=== PATIENT | female | born 1990 | race American Indian/Alaskan Native ===

== ENCOUNTER 2016-04-11 20:17 | Emergency (ER) | payer MEDICAID, OTHER ==
[2016-04-12 01:02] VITALS: BP 126/93
--- NOTE | 2016-04-12 03:31 | Emergency Department Report ---
Upper Extremity - [facility] Chief Complaint: Extremity Injury, Upper Stated Complaint: NO FEELING IN RT ARM Time Seen by Provider: 04/12/16 03:00 Upper Extremity: Right Forearm, Right Wrist Occurred When: Today Mechanism: Unsure Severity: mild Symptoms: No Pain with Movement, No Deformity, No Limited Range of Movement, No Numbness, No Weakness, No Swelling, No Bruising/Ecchymosis, No Laceration or Abrasion Other History: 25 bowman/o female state during work that her right wrist and forearm felt as though it "went to sleep"pt denies any pain at present .pt state her job require constant wrist flexion for 10-12 hours a day ED Review of Systems ROS: Stated complaint: NO FEELING IN RT ARM Other details as noted in HPI Constitutional: denies: chills, fever Eyes: denies: eye pain, eye discharge, vision change ENT: denies: ear pain, throat pain Respiratory: denies: cough, shortness of breath, wheezing Cardiovascular: denies: chest pain, palpitations Endocrine: no symptoms reported Gastrointestinal: denies: abdominal pain, nausea, diarrhea Genitourinary: denies: urgency, dysuria, discharge Musculoskeletal: arthralgia. denies: back pain, joint swelling Skin: denies: rash, lesions Neurological: denies: headache, weakness, paresthesias Psychiatric: denies: anxiety, depression Hematological/Lymphatic: denies: easy bleeding, easy bruising ED Past Medical Hx - Past Medical History Previous Medical History?: Yes Hx Hypertension: No Hx Congestive Heart Failure: No Hx Diabetes: No Hx Deep Vein Thrombosis: No Hx Renal Disease: No Hx Sickle Cell Disease: No Hx Seizures: No Hx Asthma: No Hx COPD: No Hx HIV: No Additional medical history: obesity - Surgical History Past Surgical History?: Yes - Social History Smoking Status: Former Smoker Substance Use Type: Alcohol - Medications Home Medications: Home Medications Medication Instructions Recorded Confirmed Last Taken Type Iron 18 mg PO BID 11/01/13 11/01/13 10/31/13 22:00 History Ferrous Sulfate [Feosol 325 MG tab] 325 mg PO BID #60 tablet 11/03/13 Unknown Rx HYDROcodone/APAP 5-325 [[place] 2 each PO Q4H PRN #30 tablet 11/03/13 Unknown Rx 5-325 mg TAB] Ibuprofen [Motrin 600 MG tab] 600 mg PO Q6HR PRN #30 tablet 11/03/13 Unknown Rx Vit#96/Ferrous Fum/FA 1 tab PO DAILY #30 tablet 11/03/13 Unknown Rx [ Tablet] Cephalexin [Keflex] 500 mg PO Q6H #40 capsule 04/05/14 Unknown Rx HYDROcodone/APAP 5-325 [[place] 1 each PO Q6HR PRN #12 tablet 04/05/14 Unknown Rx 5-325 mg TAB] Ibuprofen [Motrin 800 MG tab] 800 mg PO Q8H PRN #30 tablet 04/05/14 Unknown Rx Ibuprofen [Motrin] 800 mg PO Q8HR PRN #30 tablet 04/12/16 Unknown Rx Upper Extremity Exam - Exam General: Vital signs noted. No distress. Alert and acting appropriately. Head and Torso: No HEENT Abnormality, No Neck Tenderness, No Chest/Lungs Abnormality, No Abdominal Tenderness, No Back Tenderness Shoulder Exam: Yes Normal Range of Motion in Shoulder, No Shoulder Tenderness, No Clavicle Tenderness, No Shoulder Deformity, No AC Joint Tenderness Arm Exam: No Arm/Humerus Tenderness, No Arm Deformity Elbow: No Elbow Tenderness, No Normal Range of Motion in Elbow, No Elbow Deformity Forearm: No Forearm Tenderness, No Forearm Deformity, No Pain with Pronation, No Pain with Supination Wrist: Yes Normal ROM in Wrist, No Wrist Tenderness (pain upon compression of medial nerve ), No Wrist Deformity, No Snuffbox Tenderness, No Pain with Axial Thumb Compression Hand: Yes Normal ROM in Digit(s), No Hand Tenderness, No Hand Deformity, No Digit Tenderness, No Digit(s) Deformity, No Tendon Dysfunction CMS Exam: No Broken Skin, No Normal Distal Pulses, No Normal Capillary Refill, No Normal Distal Sensation ED Course Vital Signs 04/11/16 04/12/16 20:25 01:01 Temperature 97.8 F 98.1 F Pulse Rate 83 91 H Respiratory 18 18 Rate Blood Pressure 137/78 Blood Pressure 126/93 [Right] O2 Sat by Pulse 100 99 Oximetry ED Medical Decision Making - Medical Decision Making carpal tunnel syndrome Patient will follow up with [place] will place in wrist splint Critical care attestation.: If time is entered above; I have spent that time in minutes in the direct care of this critically ill patient, excluding procedure time. ED Disposition Clinical Impression: Carpal tunnel syndrome Qualifiers: Laterality: right Qualified Code(s): G56.01 - Carpal tunnel syndrome, right upper limb Disposition: DISCHARGED TO HOME OR SELFCARE Is pt being admited?: No Does the pt Need Aspirin: No Condition: Stable Instructions: Carpal Tunnel Syndrome (ED) Prescriptions: Ibuprofen [Motrin] 800 mg PO Q8HR PRN #30 tablet PRN Reason: Pain Referrals: PRIMARY CARE, [Primary Care Provider] - 3-5 Days [facility] [Outside] - 3-5 Days Forms: Work/School Release Form(ED) Time of Disposition: 03:36
== END 2016-04-12 04:00 | disposition home or self-care (01) ==
LOC: ED 20:17
DX: G56.01 Carpal tunnel syndrome, right upper limb (principal); E66.9 Obesity, unspecified; Z87.891 Personal history of nicotine dependence

== ENCOUNTER 2016-08-20 20:01 | Emergency (ER) | payer SELFPAY ==
[2016-08-20] MEDS ORDERED: TYLENOL PO ONE (20:37)
[2016-08-20] MEDS ORDERED: TYLENOL ONE (20:37)
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
[2016-08-21] MEDS ORDERED: TRIPLE ANTIBIOTIC TP ONE (01:08)
[2016-08-21] MEDS ORDERED: NACL 0.9% IR ONE (01:09)
[2016-08-21] MEDS ORDERED: NORCO 5/325 PO ONE (01:11)
[2016-08-21] MEDS ORDERED: XYLOCAINE TOPICAL 5% TP ONE (01:12)
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
[2016-08-21 03:48] VITALS: BP 122/76
== END 2016-08-21 03:30 | disposition home or self-care (01) ==
LOC: ED 20:01
DX: S02.2XXA Fracture of nasal bones, initial encounter for closed fracture (principal); S01.312A Laceration without foreign body of left ear, initial encounter; F17.200 Nicotine dependence, unspecified, uncomplicated; Y04.8XXA Assault by other bodily force, initial encounter; Y93.89 Activity, other specified; Y99.8 Other external cause status; Y92.89 Other specified places as the place of occurrence of the external cause
CPT/HCPCS: 70486; A6250

== ENCOUNTER 2017-12-10 18:57 | Outpatient (CLI) | payer MEDICAID ==
[2017-12-10 19:38] VITALS: BP 115/67
--- NOTE | 2017-12-10 22:02 | Ultrasound Report ---
FINAL REPORT EXAM: US OB LIMITED HISTORY: vaginal leaking TECHNIQUE: Ultrasound obstetrical limited for amniotic fluid volume PRIORS: None. FINDINGS: The amniotic fluid index is 6.58 centimeters with deepest pocket measurement of 2.27 centimeters Intrauterine gestation present with cardiac activity. Heart rate 166 beats per minute IMPRESSION: Amniotic fluid index below normal 6.58 centimeters
== END 2017-12-10 21:41 | disposition home or self-care (01) ==
LOC: TRG 18:57
PROVIDERS: ATTEND Obstetrics & Gynecology
DX: O47.03 False labor before 37 completed weeks of gestation, third trimester (principal); O99.213 Obesity complicating pregnancy, third trimester; O99.333 Smoking (tobacco) complicating pregnancy, third trimester; Z3A.36 36 weeks gestation of pregnancy
CPT/HCPCS: 59025; 76815

== ENCOUNTER 2017-12-25 19:46 | Outpatient (CLI) | payer MEDICAID ==
[2017-12-25 20:07] VITALS: BP 115/59
== END 2017-12-25 20:43 | disposition home or self-care (01) ==
LOC: TRG 19:46
PROVIDERS: ATTEND Obstetrics & Gynecology
DX: O47.1 False labor at or after 37 completed weeks of gestation (principal); Z3A.29 29 weeks gestation of pregnancy
CPT/HCPCS: 59025